=== PATIENT | female | born 1955 ===

== ENCOUNTER 2018-02-16 08:55 | Day surgery (SDC) | payer MEDICAID ==
[2018-02-14 13:08] VITALS: BMI 26.4
[2018-02-16] MEDS ORDERED: Lidocaine Hydrochloride 5 ML INJ ONE (11:32)
[2018-02-16] MEDS ORDERED: Propofol 10 mg/ml Inj (20 ML) ONE (11:32)
[2018-02-16] MEDS ORDERED: Lactated Ringer's 1,000 ML IV ONE (11:34)
[2018-02-16 13:12] VITALS: RESP 15; TEMP 97.8
[2018-02-16 15:35] VITALS: PULSE 64
[2018-02-16 15:37] VITALS: BP 122/69; O2SAT 99
== END 2018-02-16 13:41 | disposition home or self-care (01) ==
LOC: C.ENDO 08:55
PROVIDERS: ATTEND Internal Medicine Gastroenterology
DX: D12.0 Benign neoplasm of cecum (principal); K92.1 Melena; D12.5 Benign neoplasm of sigmoid colon; K64.8 Other hemorrhoids
CPT/HCPCS: 45385; 88305; J2704; J7120

== ENCOUNTER 2018-12-02 13:38 | Outpatient (CLI) | payer MEDICAID | END 2018-12-02 13:39 | disposition home or self-care (01) | LOC: C.MAMMO 13:38 | DX: Z12.31 Encounter for screening mammogram for malignant neoplasm of breast (principal) ==